=== PATIENT | female | born 1970 | race African-American/Black ===

== ENCOUNTER 2021-09-05 15:05 | Emergency (ER) | payer OTHER, SELFPAY ==
--- NOTE | ~2021-09-05 | XR_ITS ---
EXAMINATION: XR chest 1V portable 09/05/2021 15:41 INDICATION: Hypertension PROCEDURE: AP portable chest COMPARISON: No prior studies for comparison. FINDINGS: The lungs are clear. The cardiomediastinal silhouette is within normal limits. There are no pleural effusions. There is no pneumothorax suspected. IMPRESSION: 1: NO ACUTE CARDIOPULMONARY DISEASE. Reviewed, dictated and finalized at location A.
[2021-09-05 15:06] VITALS: BP 154/106; PULSE 116; RESP 16; TEMP 37.2; O2SAT 100
--- NOTE | 2021-09-05 15:10 | ECG_ITS ---
Measurements Intervals [place] Rate: 116 P: 39 [place]: 149 QRS: 48 QRSD: 74 T: 7 QT: 271 QTc: 376 Interpretive Statements SINUS TACHYCARDIA POSSIBLE LEFT ATRIAL ENLARGEMENT BORDERLINE T WAVE ABNORMALITY- ANT/INF LEADS ABNORMAL ECG Electronically Signed On 09-05-2021 15:36:14 CDT by Royce Byers D.O.
--- NOTE | 2021-09-05 15:27 | ED.GENADULT ---
HPI - General Adult General Chief complaint: Unspecified Stated complaint: hypertension - need ekg Time Seen by Provider: 09/05/21 15:20 History of Present Illness HPI narrative: 51-year-old female presents emergency room for hypertension. She went to her [facility] [facility] yesterday and work-up and evaluation noted that she had high blood pressure. They told her she needs to have that evaluated. So instead of calling her primary care physician to make arrangements she comes to the emergency room today to be checked out for hypertension. She denies any chest pain or shortness of breath. However she does have a history of dysfunctional uterine bleeding and has had anemia to the point she had been transfused about 3 times in the past last time was 4 months ago. Related Data Allergies Allergy/AdvReac Type Severity Reaction Status Date / Time No Known Allergies Allergy Verified 09/05/21 16:17 Review of Systems Review of Systems: CONSTITUTIONAL: Denies fever, chills, or sweats. EYES: Denies visual changes, redness, or discharge. ENT: Denies rhinorrhea, congestion, sore throat, or otalgia. CARDIOVASCULAR: Denies chest pain, palpitations, or edema. RESPIRATORY: Denies cough or dyspnea. GASTROINTESTINAL: Denies abdominal pain, nausea, vomiting, or diarrhea. GENITOURINARY: Denies dysuria or hematuria. SKIN: Denies rash or itching. MUSCULOSKELETAL: Denies back pain, joint pain, or myalgia. NEUROLOGIC: Denies headache, numbness, or weakness. PSYCHIATRIC: Denies anxiety or depression. FOR[facility]LY [facility], LATER [facility] Past Medical History Medical History (Updated 09/05/21 @ 16:32 by Thomas Sorto DO) Arthritis Dysfunctional uterine bleeding Social History Social History (Updated 09/05/21 @ 15:38 by Thomas Sorto DO) Smoking status: Never smoker Alcohol intake: never Exam Narrative: APPEARANCE: Well appearing, no pain or distress, well-nourished. Head normocephalic and atraumatic. EYES: PERRLA/EOMI, conjunctivae very clear. NOSE: Normal with no drainage EARS:TMS clear Naun Murray, with good light reflex. THROAT: Pharynx clear, no exudate. NECK: Supple. No adenopathy, no masses. RESPIRATORY: Airway patent, respirations nonlabored. Clear to auscultation bilaterally, no rales, rhonchi, wheezing. CARDIOVASCULAR: Regular rate and rhythm without murmurs, rubs, or gallops. ABDOMINAL: Soft, nontender, nondistended, no hepatosplenomegaly Musculoskeletal: Moves all extremities. Strength/ROM intact, No edema, No calf tenderness. NEURO: Alert. Cranial nerves II through XII intact. Normal gait. Good coordination. Nonfocal examination. SKIN:: Warm, dry. Normal Color PSYCHIATRIC: Normal affect/mood, normal interaction Course Vital Signs Vital signs: Vital Signs Temperature 98.9 F 09/05/21 15:06 Pulse Rate 116 H 09/05/21 15:06 Respiratory Rate 16 09/05/21 15:06 Blood Pressure 154/106 H 09/05/21 15:06 Pulse Oximetry 100 09/05/21 15:06 Oxygen Delivery Room Air 09/05/21 15:06 Temperature 98.9 F 09/05/21 15:06 Pulse Rate 124 H 09/05/21 16:11 Respiratory Rate 16 09/05/21 15:06 Blood Pressure 89/73 L 09/05/21 16:11 Pulse Oximetry 100 09/05/21 15:06 Oxygen Delivery Room Air 09/05/21 15:06 Medical Decision Making MDM Narrative Medical decision making narrative: Laboratory work-up showed no significant abnormalities. Blood pressure is at 120/60 1:05 dose of lisinopril 5 mg. She will be discharged on same medication and advised to follow-up with her primary care physician. There is no signs of anemia. Vital Signs Vital Signs: Vital Signs Temperature 98.9 F 09/05/21 15:06 Pulse Rate 116 H 09/05/21 15:06 Respiratory Rate 16 09/05/21 15:06 Blood Pressure 154/106 H 09/05/21 15:06 Pulse Oximetry 100 09/05/21 15:06 Oxygen Delivery Room Air 09/05/21 15:06 Temperature 98.9 F 09/05/21 15:06 Pulse Rate 124 H 09/05/21 16:11 Respiratory Rate 16 09/05/21 15:06 Blood Pressure 89/73 L 09/05/21 16:11
[2021-09-05 16:02] LABS: Basophils Absolute Auto 0.1 K/mm3 (0.0-0.1); Basophils Percent Auto 0.5 % (0.2-1.2); Eosinophils Percent Auto 0.3 % (0-4.4); Hematocrit 36.6 % (37.0-47.0); Hemoglobin 11.4 g/dL (12.0-15.0); Immature Granulocyte Absolute 0.06 K/mm3 (0.00-0.031); Immature Granulocyte Percent A 0.4 % (0-0.5); Lymphocytes Absolute Auto 1.25 K/mm3 (0.9-3.2); Lymphocytes Percent Auto 8.4 % (18.3-44.2); Mean Corpuscular HGB Conc 31.1 g/dl (32-36); Mean Corpuscular Hemoglobin 24.8 pg (26-34); Mean Corpuscular Volume 79.6 fl (80-100); Mean Platelet Volume 9.7 fl (7.4-10.4); Monocytes Absolute Auto 1.3 K/mm3 (0.1-0.6); Monocytes Percent Auto 8.4 % (2.6-8.5); Neutrophils Absolute Auto 12.3 K/mm3 (1.3-6.7); Platelet Count Result 317 k/mm3 (150-375); Red Cell Distribution Width 16.5 % (11.5-14.5); White Blood Count 14.9 K/mm3 (4.5-10.0)
[2021-09-05 16:09] VITALS: PULSE 116
[2021-09-05 16:10] VITALS: BP 128/61; BP 139/66; PULSE 114; PULSE 122
[2021-09-05 16:11] VITALS: BP 89/73; PULSE 124
[2021-09-05 16:26] LABS: Alanine Aminotransferase 33 U/L (6-35); Albumin Level 4.5 g/dL (3.5-5.1); Alkaline Phosphatase 118 U/L (38-126); Anion Gap 5 mmol/L (8-16); Aspartate Amino Transferase 48 U/L (14-36); Bilirubin,Total 0.8 mg/dL (0.2-1.3); Blood Urea Nitrogen 18 mg/dL (7-17); Calcium 8.9 mg/dL (8.4-10.2); Carbon Dioxide 27 mmol/L (22-30); Chloride 100 mmol/L (98-107); Estimated CRCL calculation 66 ml/min; Estimated Glomerular Filt Rate 59; Glucose 138 mg/dL (65-110); Potassium 3.6 mmol/L (3.4-5.0); Sodium 132 mmol/L (137-145)
[2021-09-05] MEDS: lisinopriL 5 MG TABLET PO (16:44)
[2021-09-05 16:52] VITALS: BP 134/74; PULSE 107; RESP 16; O2SAT 99
[2021-09-05 16:57] LABS: Add Urine Microscopic? YES; Appearance Urine Slightly Cloudy (Clear); Bilirubin Urine 2+ (Negative); Blood Urine 3+ (Negative); Color Urine Brown (Yellow); Glucose Urine UA Negative (Negative); Ketones Urine Trace mg/dL (Negative); Leukocyte Esterase Ur Negative LEU/UL (Negative); Nitrate Urine Positive (Negative); Protein Urine 3+ mg/dL (Negative); Specific Grav Ur 1.025 (1.001-1.035)
[2021-09-05 17:09] LABS: Mucus Urine Moderate /lpf; RBC Urine >75 /hpf (0-2); Squamous Epithelial Cell Urine Many /hpf (Few)
== END 2021-09-05 16:54 | disposition home or self-care (01) ==
LOC: ANHED 16:33
PROVIDERS: Emergency Provider Emergency Medicine
DX: I10 Essential (primary) hypertension (principal); M19.90 Unspecified osteoarthritis, unspecified site; R00.0 Tachycardia, unspecified; R94.31 Abnormal electrocardiogram [ECG] [EKG]
CPT/HCPCS: 36415; 71045; 80053; 81001; 81025; 85025; 93005; 99284; A9270

== ENCOUNTER 2022-01-20 01:07 | Day surgery (SDC) | payer OTHER, SELFPAY ==
[2022-01-19 08:30] VITALS: BMI 37.2
--- NOTE | 2022-01-19 08:43 | PC.NURSE ---
Report to the Outpatient Waiting Room, entrance under the green pavilion located off [facility], at time 1030 on date 01/20/22. Planned Procedure Time: 1230. Time changes happen often and if your time is changed the preop area will call you the afternoon before. - You and your visitor will be asked to self-screen and do not enter if you have any COVID symptoms. - Only one visitor is requested with a max of two and NO children visitors are allowed at this time. - The patient visitor may be requested to leave or wait in car when not with patient due to distancing restrictions. - A mask is optional within the hospital. Patients may have clear liquids (water, carbonated beverages, clear teas, apple juice) until 3 hours prior to surgery with a maximum of 20 ounces. - No food from midnight until time of surgery Take the following medications with a SIP of water the morning of surgery: NONE Medications to discontinue per physician: VITAMINS Date to take last dose: NO MORE UNTIL AFTER SURGERY Please no make-up, nail hong konger, hairspray, perfume, deodorant, or body powder the day of surgery. No jewelry (including any body piercings) or valuables the day of surgery, leave them at home. Please take a shower or bath the night before, or the morning of, surgery with an antibacterial soap. Wear comfortable, loose fitting clothing. - Jewelry must be removed prior to entering the operating room. Rings and piercings that are not removed may be cut off. - The hospital will not accept responsibility for valuables. - Please leave all valuables, including medications, at home the day of surgery. If you are going home after surgery, a licensed log driver must drive you home. - NO public transportation without another adult if you receive anesthesia. - We recommend that an adult stay with you for 24 hours following discharge. - We also recommend that you do not drive, make important decision, drink alcoholic beverages, or take any drugs that were not prescribed by your health care provider for at least 24 hours after your discharge time. Follow any additional instructions given to you from your surgeon. If you or anyone in your household have experienced Covid symptoms in the past week, please notify your surgeon or the nurse liaison at the phone number below for possible testing. Telephone instructions given to PT - LANRE ANNE and asked if any additional questions and then verbalized understanding. Patient advised to call surgeon office or pre surgery nurse liaison [phone] if any additional questions.
[2022-01-20] VITALS (12 sets, daily range): BP systolic 121–150; BP diastolic 55–88; PULSE 73–100; RESP 12–18; TEMP 36.2–37.2; O2SAT 10–100
--- NOTE | 2022-01-20 11:33 | P.PNAN_ITS ---
Anes - Initial Pre Proc Eval Procedure: Operation Date: 01/20/22 12:30 Proposed Procedures p Total Laparoscopic Hysterectomy, Bilateral Salpingo Oophorectomy - Reid Dumont MD Date/Time: 01/20/22 11:33 Surgeon: Reid Dumont MD Pre Op Diagnosis: leiomyoma of uterus Patient Data Age: 51 Gender: F Height: 1.6 m Weight: 95.25 kg Allergies Allergy/AdvReac Type Severity Reaction Status Date / Time No Known Allergies Allergy Verified 01/20/22 11:29 Home Medications Medication Instructions Recorded Confirmed Type docusate sodium 100 mg capsule 100 mg PO DAILY 01/19/22 01/20/22 History ferrous sulfate 325 mg (65 mg 325 mg PO DAILY 01/19/22 01/20/22 History iron) tablet (FeroSul) hydrochlorothiazide 25 mg tablet 25 mg PO DAILY 01/19/22 01/20/22 History tramadol 50 mg tablet 50 mg PO HS 01/20/22 01/20/22 History Patient hx anesthesia problems: none Family hx anesthesia problems: none Results Review: All pre-operative results and documents have been reviewed as part of the pre- operative evaluation. [facility] Past Medical History Medical History (Updated 01/20/22 @ 11:33 by Andrei Alvarado MD) Arthritis Dysfunctional uterine bleeding HTN (hypertension) Obesity Surgical History Surgical History (Updated 01/20/22 @ 11:33 by Andrei Alvarado MD) H/O arthroscopic knee surgery Social History Social History Smoking status: Never smoker Alcohol intake: never Substance use: never Substance use type: does not use Living arrangements: with family Spiritual care concerns: No Anes - Eval Final PreProcedure Day of Procedure 01/20/22 11:33 Patient weight: obese Heart: regular rate and rhythm Lungs: clear to auscultation Airway: Mallampati scale Neurological: alert and oriented Last oral intake: >/= 8 hours ASA classification: II Emergent: no Anesthesia type and monitoring: general ETT and standard monitoring Results Review: All pre-operative results and documents have been reviewed as part of the pre- operative evaluation. Informed Consent: The patient's anesthetic plan and its attendant risks and benefits were discussed with the patient/family/POA. Questions were solicited and answers provided to the satisfaction of the patient/family/POA.
[2022-01-20] MEDS: LACTATED RINGERS 1,000 ML 30 ML IV CONT ×2 (11:42→14:38)
[2022-01-20] MEDS: ACETAMINOPHEN 500 MG TABLET 1000 MG PO (11:42)
[2022-01-20] MEDS: SCOPOLAMINE 1.5 MG PATCH TRANSDERM (11:44)
[2022-01-20 11:45] LABS: Hematocrit 24.9 % (37.0-47.0)
[2022-01-20] MEDS: KETOROLAC 15 MG/ML VIAL (*BKC) IV PUSH (11:45)
[2022-01-20 11:49] LABS: Alanine Aminotransferase 14 U/L (6-35); Albumin Level 4.1 g/dL (3.5-5.1); Alkaline Phosphatase 71 U/L (38-126); Anion Gap 4 mmol/L (8-16); Aspartate Amino Transferase 22 U/L (14-36); Bilirubin,Total 0.3 mg/dL (0.2-1.3); Blood Urea Nitrogen 8 mg/dL (7-17); Calcium 8.7 mg/dL (8.4-10.2); Carbon Dioxide 26 mmol/L (22-30); Chloride 104 mmol/L (98-107); Estimated CRCL calculation 92 ml/min; Estimated Glomerular Filt Rate > 60; Glucose 92 mg/dL (65-110); Potassium 3.7 mmol/L (3.4-5.0); Sodium 134 mmol/L (137-145)
--- NOTE | 2022-01-20 11:59 | P.HPUP_ITS ---
History and Physical Update Update Date/Time: 01/20/22 11:59 This case will be performed as a laparoscopic total hysterectomy with bilateral salpingo-oophorectomy. It will not be done as robotic assisted case. History and Physical has been reviewed, including an updated exam of the pat ient. There are NO changes in the patient's condition. Risks, benefits, and alternatives have been discussed and questions answered. Patient agrees to proceed with procedure.
[2022-01-20] MEDS: ceFAZolin 2 GM/D5W 50 ML 2 GM/50 ML BAG IVPB (12:10)
[2022-01-20] MEDS: ceFAZolin SODIUM 1 GM VIAL (12:41)
--- NOTE | 2022-01-20 13:32 | SUR.OPER ---
see TAR for PRBC transfusion documentation
--- NOTE | 2022-01-20 14:10 | W.PM.PROC2 ---
Procedure Note - Detailed Date of Procedure 01/20/22 Pre-op Diagnosis leiomyoma of uterus Post-op Diagnosis Same Procedure Performed Total laparoscopic hysterectomy and bilateral salpingo-oophorectomy. Surgeon Reid Dumont MD Anesthesia General Findings Enlarged fibroid uterus, Normal appearing ovaries, normal-appearing tubes, normal vulva, vagina, cervix. Description of Procedure This patient was taken to the operating room. She was prepped and draped in the dorsal lithotomy position after induction of general anesthesia. The uterine manipulator and Elliott cup were placed. This was done with a speculum and tenaculum. The speculum was placed. The cervix was grasped with a tenaculum. The stay sutures were placed at 3 and 9:00 a.m.. The stay sutures of 0 Vicryl were brought through the appropriately sized Elliott cup. The tip of the JOHNNY manipulator was placed in the intrauterine cavity. The cup was slid into place around the cervix and into the fornices. It was locked into place. The sutures were then wrapped around the handle and tied under tension. A 5 mm skin incision was made in the left upper quadrant the abdomen. A 5 mm trocar was inserted into the intrauterine cavity under direct visualization of the scope. Pneumoperitoneum was achieved. A left lower quadrant 11 mm incision was made with scalpel. An 11 mm trocar was inserted into the anterior abdominal cavity under direct visualization the scope. A 5 mm infraumbilical incision was made with a scalpel and a 5 mm trocar was inserted the intra-abdominal cavity under direct visualization of the scope. Bilateral ureteral lysis was performed. This was done from the pelvic brim down to the uterine artery. This was done with careful dissection using sharp and blunt dissection. The infundibulopelvic ligaments were isolated after identification of the ureters bilaterally. These infundibulopelvic ligaments were cauterized and transected with LigaSure cautery. The para ovarian tissue was cauterized and transected with LigaSure cautery bilaterally. Moving around the ovary into the broad ligament the tissue was cauterized transected with LigaSure cautery. The round ligaments were cauterized transected with LigaSure cautery this was all done in a bilateral fashion. In a stepwise fashion along the lateral aspects of the uterus the round ligament and broad ligaments were cauterized transected down to the level of the uterine arteries. A bladder flap was created in the bladder was moved distally to the end of the cervix and over the Elliott cup. The bilateral uterine arteries were cauterized and transected. the uterus was bifurcated and was cut into 2 pieces using monopolar cautery. After colpotomy both pieces were taken out to the vagina. Colpotomy was then performed. In a circumferential fashion the vagina was transected using unipolar cautery. The incision was made down on the Elliott cup. The uterus, cervix, fallopian tubes and ovaries were taken out through the vagina. A pneumo occluder was placed in the vagina. The vaginal cuff was closed with a 0 V lock suture in a running fashion. The pelvis was irrigated with copious amounts antibiotic irrigation. The ureters were again examined and found to be intact and flowing freely under the uterine arteries into the bladder. The bladder was intact. It was examined directly. The vagina was irrigated with Betadine solution after removal of the Pneumo occluder. The patient was taken to recovery room. She was stable condition. Sponge lap and needle counts were correct x2. Estimated Blood Loss 75 Drains Yes Packing No Pathology Yes Complications No immediate complications Condition Stable Disposition Floor
--- NOTE | 2022-01-20 14:19 | SUR.OPER ---
ATTACHING MORENO TO LEFT LEG MORENO CATHETER FELL OUT AND NOTED END OF CATHETER TO HAVE OUTSIDE RUBBER TEAR/WHEN PLACED TOGETHER ALL RUBBER OF MORENO INTACT/INNER CATHETER WITH SMALL FRANCO. DR BUSCH PAGED AND INFORMED OF ABOVE. URINE CLEAR YELLOW AND DR BUSCH AWARE. ORDER RECEIVED TO PLACE NEW MORENO AND VERIFIED. Dianna BERMUDEZ RN
--- NOTE | 2022-01-20 14:26 | SUR.OPER ---
DR BUSCH IN OR TO ASSESS CATHETER. KEEP NEW CATHETER IN.
--- NOTE | 2022-01-20 14:32 | SUR.OPER ---
2 UNITS PRBC INFUSED INTRAOP SEE TAR
[2022-01-20] MEDS: fentaNYL CITRATE INJ (*CRX) 100 MCG/2 ML VIAL 25 MCG IV PUSH ×8 (14:48→15:12)
--- NOTE | 2022-01-20 14:48 | SUR.OPER ---
PATIENT MORENO CONTINUED TO DRAIN CLEAR YELLOW UA IN PACU.
[2022-01-20] MEDS: HYDROmorphone HCL INJ (*CRX) 1 MG/ML SYR 0.25 MG IV PUSH ×3 (15:36→15:46)
--- NOTE | 2022-01-20 16:07 | PC.NURSE ---
Patient transferred to post room #276 via ( bed ). Support person present. Oriented to unit, room, information board, rooming in, admission packet and security measures. Patient verbalizes understanding.
[2022-01-20] MEDS: HYDROcodone/acetaminophen (*CRX) 10-325 MG TABLET 1 TAB PO ×2 (16:28→20:34)
[2022-01-20] MEDS: DEXTROSE 5%/0.45% SOD CHL 1,000 ML 125 ML IV CONT (16:41)
[2022-01-20] MEDS: KETOROLAC 30 MG/ML VIAL (*BKC) IV PUSH (16:41)
[2022-01-20] MEDS: IBUPROFEN 600 MG TABLET PO (20:35)
--- NOTE | 2022-01-20 22:12 | PC.NURSE ---
2119-- Dr. Dumont phoned to in. about pt., informed chance was just taken out --> wants chance replaced, will call and talk to pt about replacing chance 2129 -- nurse went to room to put chance back in, had not talked with pt., pt. refuses chance 2130 -- call to , informed pt. refused chance replacement, Dr. Dumont called and talked to pt., pt. cont's to refuse
[2022-01-21 03:48] VITALS: BP 116/57; PULSE 93; RESP 18; TEMP 36.7; O2SAT 100
[2022-01-21] MEDS: HYDROcodone/acetaminophen (*CRX) 5-325 MG TABLET 1 TAB PO ×2 (03:52→10:02)
[2022-01-21] MEDS: IBUPROFEN 600 MG TABLET PO ×2 (03:53→10:02)
[2022-01-21 04:00] VITALS: BP 134/54; PULSE 80; RESP 18; TEMP 37.7; O2SAT 100
[2022-01-21 04:34] LABS: Basophils Percent Auto 0.4 % (0.2-1.2); Eosinophils Absolute Auto 0.1 K/mm3 (0-0.3); Eosinophils Percent Auto 1.5 % (0-4.4); Hematocrit 29.8 % (37.0-47.0); Hemoglobin 8.6 g/dL (12.0-15.0); Immature Granulocyte Absolute 0.03 K/mm3 (0.00-0.031); Immature Granulocyte Percent A 0.4 % (0-0.5); Lymphocytes Absolute Auto 1.01 K/mm3 (0.9-3.2); Lymphocytes Percent Auto 14.7 % (18.3-44.2); Mean Corpuscular HGB Conc 28.9 g/dl (32-36); Mean Corpuscular Hemoglobin 23.2 pg (26-34); Mean Corpuscular Volume 80.5 fl (80-100); Mean Platelet Volume 9.5 fl (7.4-10.4); Monocytes Absolute Auto 0.3 K/mm3 (0.1-0.6); Monocytes Percent Auto 4.7 % (2.6-8.5); Neutrophils Absolute Auto 5.4 K/mm3 (1.3-6.7); Neutrophils Percent Auto 78.3 % (45.5-73.1); Nucleated Red Blood Cells Perc 0.3 % (0.0-0.2); Platelet Count Result 351 k/mm3 (150-375); Red Cell Distribution Width 19.2 % (11.5-14.5); White Blood Count 6.9 K/mm3 (4.5-10.0)
[2022-01-21 05:02] LABS: Platelet Estimate Adequate (Adequate)
[2022-01-21 05:03] LABS: Anisocytosis 2+ (NORMAL); Hypochromasia 1+ (NORMAL); Macrocytosis 1+ (NORMAL); Microcytosis 2+ (NORMAL); Poikilocytosis 1+ (NORMAL)
[2022-01-21 05:04] LABS: Schistocytes None Seen (NORMAL)
[2022-01-21] MEDS: hydroCHLOROthiazide 25 MG TABLET PO (08:28)
--- NOTE | 2022-01-21 08:56 | PM.GYNPNOP ---
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/P Postoperative Procedures: Procedures Operation Date: 01/20/22 12:30 Actual Procedure Side Surgeon p Total Laparoscopic Hysterectomy, Bilateral Salpingo Oophorectomy Bilateral Reid Dumont MD Postoperative day: 1 Postoperative status: doing well Postoperative plan: routine post-op care and discharge Time Spent With Patient Time: Total time spent is greater than 50% in coordination of care (as documented) at patient's floor/unit and/or counseling patient: Time with patient: less than 15 minutes EN[employer]EVEL [employer]ER- PN:Subj Post-Op Subjective Date/time seen: 01/21/22 08:56 Subjective: patient has no complaints, patient desires discharge, pain is well controlled and patient is tolerating oral intake Exam Const: General: comfortable and no acute distress GI: GI Palp: Yes Soft to palpation Auscultation: normal bowel sounds Other: incisions CDI Extrem: General: no calf tenderness EN[employer]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: Obj Data Vital Signs Vital Signs: Vital Signs - 24 hr 01/20/22 11:06 01/20/22 14:38 01/20/22 14:50 Temperature 98.5 F 97.2 F L Pulse Rate 100 73 74 Respiratory Rate 16 13 13 Blood Pressure 143/83 H 123/77 123/79 Pulse Oximetry 100 100 100 Oxygen Delivery Room Air Simple Face Mask Simple Face Mask Oxygen Flow Rate 8 8 01/20/22 15:05 01/20/22 15:10 01/20/22 15:20 Temperature 97.8 F Pulse Rate 75 82 77 Respiratory Rate 13 15 14 Blood Pressure 135/75 128/63 136/70 Pulse Oximetry 100 100 100 Oxygen Delivery Simple Face Mask Room Air Room Air Oxygen Flow Rate 8 01/20/22 15:30 01/20/22 15:40 01/20/22 15:50 Temperature 98.5 F Pulse Rate 82 74 82 Respiratory Rate 18 18 12 Blood Pressure 135/71 150/77 H 138/81 Pulse Oximetry 99 100 100 Oxygen Delivery Room Air Room Air Room Air Oxygen Flow Rate 01/20/22 16:30 01/20/22 16:30 01/20/22 20:00 Temperature 97.6 F 98.9 F Pulse Rate 88 91 Respiratory Rate 16 18 Blood Pressure 136/88 121/83 Pulse Oximetry 10 L 100 Oxygen Delivery Room Air Oxygen Flow Rate 01/20/22 20:50 01/20/22 22:55 01/20/22 23:56 Temperature 98.9 F Pulse Rate 90 Respiratory Rate 18 Blood Pressure 127/55 L Pulse Oximetry 100 Oxygen Delivery Room Air Room Air Oxygen Flow Rate 01/21/22 03:48 01/21/22 04:00 01/21/22 04:00 Temperature 98.1 F 99.8 F H Pulse Rate 93 80 Respiratory Rate 18 18 Blood Pressure 116/57 L 134/54 L Pulse Oximetry 100 100 Oxygen Delivery Room Air Oxygen Flow Rate Intake/Output Intake/Output: Intake & Output 01/18/22 01/19/22 01/20/22 01/21/22 23:59 23:59 23:59 23:59 Intake Total 1700 Output Total 1250 100 Balance 450 -100 Meds/Results Medications: Active Medications Generic Name Dose Route Start Last Admin Trade Name Freq PRN Reason Stop Dose Admin Hydrocodone Bitart/Acetaminophen 1 tab 01/20/22 16:00 01/21/22 03:52 Hydrocodone/Acetaminophen (*Crx) 5-325 Mg Tablet PO 1 tab Q3H PRN Administration Pain Rated 5 or Less Hydrocodone Bitart/Acetaminophen 1 tab 01/20/22 16:00 01/20/22 20:34 Hydrocodone/Acetaminophen (*Crx) 10-325 Mg Tablet PO 1 tab Q3H PRN Administration Pain Rated 6 or Greater Estradiol 0.05 mg 01/20/22 16:00 01/20/22 18:41 Estradiol 7 Day 0.05 Mg Patch TRANSDERM Not Given WEEKLY NELLA Hydrochlorothiazide 25 mg 01/21/22 09:00 01/21/22 08:28 Hydrochlorothiazide 25 Mg Tablet PO 25 mg DAILY NELLA Administration Dextrose/Sodium Chloride 1,000 mls @ 125 mls/hr 01/20/22 16:00 01/20/22 16:41 Dextrose 5% Sodium Chloride 0.45% IV CONT 125 mls/hr .Q8H NELLA Administration Ibuprofen 600 mg 01/20/22 16:00 01/21/22 03:53 Ibuprofen 600 Mg Tablet PO 600 mg Q6H PRN Administration Cramping Ketorolac Tromethamine 30 mg 01/20/22 16:00 01/20/22 16:41 Ketorolac 30 Mg/Ml Vial (*Bkc) IV PUSH 01/25/22 15:59 30 mg Q6H PRN Administration Pain Rated 4-6 Naloxone HCl 0.1 mg 01/20/22 16:00 Naloxone Hcl
[2022-01-21 09:00] VITALS: PULSE 80; RESP 18; O2SAT 100
== END 2022-01-21 10:35 | disposition home or self-care (01) ==
LOC: ANHSURGERY 11:58 → ANHOB2 16:23
PROVIDERS: Anesthesiology; Visit Provider Obstetrics & Gynecology
PROC: 0UT9FZZ Resection of Uterus, Via Natural or Artificial Opening With Percutaneous Endoscopic Assistance (ICD-10-PCS; CPT 58573; principal; 2022-01-20 12:30)
DX: D25.9 Leiomyoma of uterus, unspecified (principal); N80.00 Endometriosis of the uterus, unspecified; N72 Inflammatory disease of cervix uteri; N83.8 Other noninflammatory disorders of ovary, fallopian tube and broad ligament; N93.8 Other specified abnormal uterine and vaginal bleeding; I10 Essential (primary) hypertension; E66.9 Obesity, unspecified; Z68.37 Body mass index [BMI] 37.0-37.9, adult
CPT/HCPCS: 58573; 36415; 36430; 80053; 85014; 85018; 85025; 86850; 86900; 86901; 86923; 88307; 99199; A9270; J0330; J0690; J1170; J1885; J2250; J2405; J2704; J2710; J3010; J7030; J7120; P9016